=== PATIENT | female | born 1980 ===

== ENCOUNTER 2023-08-11 21:43 | Outpatient (REF) | payer BC, SELFPAY ==
[2023-08-11 21:34] LABS: Bacteria Many HPF (Negative); Epithelial Cells Few HPF (Negative); RBC 0-2 HPF (0-2); WBC >50 HPF (0-5)
[2023-08-11 21:35] LABS: C & S Indicated? C&S Done As Ordered; Casts Negative LPF (Negative); Crystals Few Calcium Oxalate HPF (Negative); Mucus Trace (Negative)
== END 2023-08-11 21:44 | disposition home or self-care (01) ==
LOC: LBN 21:43
PROVIDERS: Visit Provider Physician Assistant Medical
DX: R30.0 Dysuria (principal); R82.89 Other abnormal findings on cytological and histological examination of urine
CPT/HCPCS: 81015; 87086